=== PATIENT | male | born 1975 | race African-American/Black ===

== ENCOUNTER 2017-07-05 10:08 | Inpatient (IN) | payer SELFPAY ==
[~2017-07-05] VITALS: Ht 175.3 cm; Wt 93.8 kg
[2017-07-05] VITALS (8 sets, daily range): BP systolic 132–154; BP diastolic 75–103; PULSE 66–100; TEMP 36.2–36.6; O2SAT 96–100; Ht 175.3 cm; Wt 93.8 kg
[~2017-07-05 10:08] MED LIST: LIDODERM (LIDOCAINE) PATCH 5% TD PRN; LRT5 PO
[2017-07-05] MEDS ORDERED: NAPR1TAB9 PO (10:45)
[2017-07-05] MEDS ORDERED: KETOROLAC TROMETHAMINE 30 MG/ML VIAL IV STA (11:21)
[2017-07-05] MEDS ORDERED: ERTAPENEM 1 GM ADDVIAL IV ONE (11:30)
[2017-07-05 11:51] LABS: BASO % 0.1 %; BASO ABS # 0.01 K/uL (0-0.2); COMPLETE YES; EOS % 1.4 %; HEMATOCRIT 39.6 % (42-52); IG% 0.4 %; LYMPH % 28.4 %; LYMPH ABS # 1.96 K/uL (1.2-3.4); MEAN CORPUSCULAR HEMOGLOBIN 32.2 pg (25-34); MEAN CORPUSCULAR HGB CONC 35.4 g/dl (32-36); MEAN PLATELET VOLUME 11.5 fL (7.4-10.4); MONO % 5.1 %; NEUT % 64.6 %; PLATELET COUNT 242 K/uL (130-400); RED BLOOD COUNT 4.35 M/uL (4.7-6.1)
[2017-07-05 12:15] LABS: BUN/CREATININE RATIO 11.8 (10-20); CALCIUM 9.2 mg/dl (8.5-10.1); CREATININE 1.2 mg/dl (0.60-1.40); POTASSIUM 4.1 mmol/L (3.5-5.1)
--- NOTE | 2017-07-05 12:34 | DIAGNOSTIC IMAGING REPORT ---
RIGHT HAND 3 VIEWS CLINICAL HISTORY: Right hand injury. FINDINGS: 3 views of the right hand are obtained. No prior studies are available for comparison at the time of dictation. The skeletal structures are well mineralized. No fracture is identified. The joint spaces of the hand are well-maintained. There may be chronic avulsion injury of the ulnar styloid. Dorsal soft tissue swelling is noted. IMPRESSION: Dorsal soft tissue edema with no radiographic evidence of right hand fracture. If there is strong clinical concern for occult fracture consider short-term radiographic follow-up. Electronically signed by: Mohan Caraballo M.D. 07/05/2017 12:33 PM Dictated Date/Time: 07/05/2017 12:15 PM
[2017-07-05] MEDS ORDERED: MoRPHine SULFATE 4 MG/ML 1 ML CARP\\VIAL IV STA (12:35)
[2017-07-05] MEDS ORDERED: ONDANSETRON INJ 2 MG/ML 2 ML VIAL IV STA (12:35)
[2017-07-05] MEDS ORDERED: DIPHTHERIA/TETANUS/PERTUSSIS 0.5 ML SYR/VIAL IM. ONE (13:00)
[2017-07-05] MEDS ORDERED: ONDANSETRON INJ 2 MG/ML 2 ML VIAL IV PRN ×2 (14:30→20:00)
[2017-07-05] MEDS ORDERED: ACETAMINOPHEN 325 MG TAB PO PRN (14:30)
[2017-07-05] MEDS ORDERED: VANCOMYCIN CONSULT ACTIVE PRN (14:40)
[2017-07-05] MEDS ORDERED: LIDODERM (LIDOCAINE) PATCH 5% TD ONE (14:42)
[2017-07-05] MEDS ORDERED: MoRPHine SULFATE 4 MG/ML 1 ML CARP\\VIAL IV PRN (14:45)
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
[2017-07-05] MEDS ORDERED: POLYETHYLENE (MIRALAX) 17 GM PACK PO PRN (15:45)
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
[2017-07-05] MEDS ORDERED: VANCOMYCIN INJ 2,250 MG in SODIUM CHLORIDE 0.9% 500ML 500 ML IV ONE (16:30)
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
[2017-07-05] MEDS ORDERED: LIDOCAINE HCL 2% LOCAL 50ML VIAL ONE (18:39)
[2017-07-05] MEDS ORDERED: BUPIVACAINE 0.5 % 5 MG/1 ML MPF 30ML VIAL ONE (18:39)
[2017-07-05] MEDS ORDERED: BACITRACIN 50000 UNIT VIAL ONE (18:41)
--- NOTE | 2017-07-05 18:45 | History & Physical Bridge Note ---
H&P Re-Evaluation Bridge Note: I have examined the patient, reviewed the History & Physical and in the interval since the performance of the History & Physical I have noted the following changes of clinical significance: No changes noted I saw the patient in the preoperative holding area and we discussed risks benefits reasonable outcomes and options of treatment. He understands he may develop arthritis in the PIP joint given infection. We discussed options of not doing surgery with result of persistent infection. I discussed possibly stiffness tendon and nerve injury etc. he is agreeable wishes to receive proper surgical intervention shortly. Surgical intervention will consist of a right ring finger arthrotomy and drainage of PIP joint.
[2017-07-05] MEDS ORDERED: FENTANYL CITRATE INJ 50 MCG/1 ML 2 ML VIAL ONE (18:48)
[2017-07-05] MEDS ORDERED: MIDAZOLAM HCL 1 MG/ML 2ML VIAL ONE (18:48)
[2017-07-05] MEDS ORDERED: PROPOFOL IV EMULSION 10 MG/ML 20 ML VIAL IV ONE (19:13)
[2017-07-05] MEDS ORDERED: LABETALOL HCL IV 5 MG/ML 20ML IV ONE (19:14)
[2017-07-05] MEDS ORDERED: HydrALAZINE HCL 20 MG/ML VIAL ONE (19:23)
--- NOTE | 2017-07-05 19:39 | [facility] Post Operative Brief Note ---
Immediate Operative Summary Operative Date Jul 05, 2017. Pre-Operative Diagnosis Septic PIP Joint Right 4th Finger Post-Operative Diagnosis Septic PIP Joint Right 4th Finger Procedure(s) Performed Arthrotomy and Drainage PIP Joint Right 4th Finger Surgeon Dr. Gaona Community Specialist Surgeon(s) no Estimated Blood Loss 0ml Findings septic PIP joint Specimens 1. Septic PIP Joint Right 4th Finger Drains no Anesthesia digital block with sedation Complication(s) None Disposition Recovery Room / PACU
[2017-07-05] MEDS ORDERED: FLUMAZENIL 0.1 MG/1 ML 10 ML VIAL IV PRN (20:00)
[2017-07-05] MEDS ORDERED: EpHEDrine SULFATE INJ 50 MG/ML AMP IV PRN (20:00)
[2017-07-05] MEDS ORDERED: ATROPINE SULFATE 0.1 MG/ML 5ML SYR IV PRN (20:00)
[2017-07-05] MEDS ORDERED: KETOROLAC TROMETHAMINE 30 MG/ML VIAL IV. PRN (20:00)
[2017-07-05] MEDS ORDERED: LABETALOL HCL IV 5 MG/ML 20ML IV PRN (20:00)
[2017-07-05] MEDS ORDERED: NALOXONE HCL 0.4 MG/1 ML VIAL/CARP IV PRN (20:00)
[2017-07-05] MEDS ORDERED: PROMETHAZINE HCL INJ 12.5 MG in SODIUM CHLORIDE 0.9% 50ML 50 ML IV PRN (20:00)
[2017-07-05] MEDS ORDERED: HYDROmorphone INJ 1 MG/ML SYR IV PRN (20:00)
--- NOTE | 2017-07-05 20:10 | Anesthesiology Progress Note ---
Anesthesia Post Op Note Date & Time Jul 05, 2017 at 20:10 Vital Signs Pain Intensity: 4 Vital Signs Past 12 Hours Date Time Temp Pulse Resp B/P (MAP) Pulse Ox O2 Delivery O2 Flow Rate FiO2 07/05/17 20:09 36.4 89 16 132/89 (103) 98 Room Air 07/05/17 20:00 36.5 87 19 131/85 97 Room Air 07/05/17 19:50 89 22 144/99 98 Room Air 07/05/17 19:41 36.5 89 13 139/89 97 Room Air 07/05/17 16:10 36.6 66 16 154/103 (120) 100 Room Air 07/05/17 14:40 100 Room Air 07/05/17 14:09 36.9 64 18 128/86 100 Room Air 07/05/17 12:18 83 18 141/98 100 Room Air 07/05/17 10:16 36.8 85 20 165/105 98 Room Air Notes Mental Status: alert / awake / arousable, participated in evaluation Pt Amnestic to Procedure: Yes Nausea / Vomiting: adequately controlled Pain: adequately controlled Airway Patency, RR, SpO2: stable & adequate BP & HR: stable & adequate Hydration State: stable & adequate Anesthetic Complications: no major complications apparent
[2017-07-05] MEDS: KETOROLAC TROMETHAMINE 30 MG/ML VIAL IV SCH (23:11)
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
[2017-07-06] MEDS ORDERED: VANCOMYCIN INJ 1,500 MG in SODIUM CHLORIDE 0.9% 500ML 500 ML IV SCH ×2 (04:00→08:00)
[2017-07-06 04:51] VITALS: BP 160/78; PULSE 96; TEMP 36.6; O2SAT 98
[2017-07-06] MEDS: KETOROLAC TROMETHAMINE 30 MG/ML VIAL IV SCH ×2 (05:49→12:20)
[2017-07-06 06:04] LABS: BASO % 0.1 %; BASO ABS # 0.01 K/uL (0-0.2); COMPLETE YES; EOS % 1.3 %; HEMATOCRIT 37.6 % (42-52); IG% 0.2 %; LYMPH ABS # 1.77 K/uL (1.2-3.4); MEAN CELL VOLUME 91.5 fL (80-100); MEAN CORPUSCULAR HEMOGLOBIN 32.1 pg (25-34); MEAN CORPUSCULAR HGB CONC 35.1 g/dl (32-36); MEAN PLATELET VOLUME 11.6 fL (7.4-10.4); MONO % 5.1 %; NEUT % 72.3 %; PLATELET COUNT 226 K/uL (130-400); RED BLOOD COUNT 4.11 M/uL (4.7-6.1); WHITE BLOOD COUNT 8.43 K/uL (4.8-10.8)
[2017-07-06 06:37] LABS: CALCIUM 8.6 mg/dl (8.5-10.1); CREATININE 1.1 mg/dl (0.60-1.40); POTASSIUM 4.1 mmol/L (3.5-5.1)
[2017-07-06 06:46] VITALS: BP 129/73
[2017-07-06 07:25] VITALS: BP 134/86; PULSE 93; TEMP 36.6; O2SAT 99
[2017-07-06 07:44] VITALS: BP 134/75; PULSE 97; TEMP 36.5; O2SAT 98
[2017-07-06] MEDS ORDERED: LIDODERM (LIDOCAINE) PATCH 5% TD SCH (09:00)
--- NOTE | 2017-07-06 10:19 | Anesthesiology Progress Note ---
Anesthesia Post Op Note Date & Time Jul 06, 2017 at 10:18 Vital Signs Vital Signs Past 12 Hours Date Time Temp Pulse Resp B/P (MAP) Pulse Ox O2 Delivery O2 Flow Rate FiO2 07/06/17 08:00 Room Air 07/06/17 07:44 36.5 97 18 134/75 (94) 98 Room Air 07/06/17 07:25 36.6 93 16 134/86 (102) 99 Nasal Cannula 2.0 07/06/17 06:46 129/73 (91) 07/06/17 04:51 36.6 96 18 160/78 (105) 98 Room Air 07/06/17 00:00 Room Air 07/05/17 23:15 36.3 100 18 135/75 (95) 96 Room Air 07/05/17 23:10 36.6 99 16 133/80 (97) 97 Room Air Notes Mental Status: alert / awake / arousable, participated in evaluation Pt Amnestic to Procedure: Yes Nausea / Vomiting: adequately controlled Pain: adequately controlled Airway Patency, RR, SpO2: stable & adequate BP & HR: stable & adequate Hydration State: stable & adequate Anesthetic Complications: no major complications apparent
[2017-07-06] MEDS ORDERED: ERTAPENEM IV 1 GM in SODIUM CHLOR 0.9% AD-VAN 50ML 50 ML IV SCH (12:00)
--- NOTE | 2017-07-06 14:33 | Orthopedic Progress Note ---
Orthopedic Progress Note Date of Service Jul 06, 2017. Subjective Post OP Day: 1 Reports: feeling well, complaints (Main complaint is low back back that goes down his leg. The pain started after digging a hole for work.), pain controlled w PO medications, Denies: chest pain, SOB, calf pain Objective N/V intact, capillary refill less than 2 sec., incision C/D/I, A&O x3 Right ring finger: Moderate swelling around the PIP joint with mild to moderate erythema. No active drainage. Incision is well approximated. Date Time Temp Pulse Resp B/P (MAP) Pulse Ox O2 Delivery O2 Flow Rate FiO2 07/06/17 08:00 Room Air 07/06/17 07:44 36.5 97 18 134/75 (94) 98 Room Air 07/06/17 07:25 36.6 93 16 134/86 (102) 99 Nasal Cannula 2.0 07/06/17 06:46 129/73 (91) 07/06/17 04:51 36.6 96 18 160/78 (105) 98 Room Air 07/06/17 00:00 Room Air 07/05/17 23:15 36.3 100 18 135/75 (95) 96 Room Air 07/05/17 23:10 36.6 99 16 133/80 (97) 97 Room Air 07/05/17 22:10 36.2 100 22 144/84 (104) 96 Room Air 07/05/17 21:18 36.5 94 16 145/86 (105) 97 Room Air 07/05/17 20:40 36.2 90 18 144/94 (111) 99 Room Air 07/05/17 20:10 Room Air 07/05/17 20:09 36.4 89 16 132/89 (103) 98 Room Air 07/05/17 20:00 36.5 87 19 131/85 97 Room Air 07/05/17 19:50 89 22 144/99 98 Room Air 07/05/17 19:41 36.5 89 13 139/89 97 Room Air 07/05/17 16:10 36.6 66 16 154/103 (120) 100 Room Air 07/05/17 14:40 100 Room Air Laboratory Results 24 Hours: Test 07/06/17 05:35 White Blood Count 8.43 K/uL Red Blood Count 4.11 M/uL Hemoglobin 13.2 g/dL Hematocrit 37.6 % Mean Corpuscular Volume 91.5 fL Mean Corpuscular Hemoglobin 32.1 pg Mean Corpuscular Hemoglobin Concent 35.1 g/dl Platelet Count 226 K/uL Mean Platelet Volume 11.6 fL Neutrophils (%) (Auto) 72.3 % Lymphocytes (%) (Auto) 21.0 % Monocytes (%) (Auto) 5.1 % Eosinophils (%) (Auto) 1.3 % Basophils (%) (Auto) 0.1 % Neutrophils # (Auto) 6.09 K/uL Lymphocytes # (Auto) 1.77 K/uL Monocytes # (Auto) 0.43 K/uL Eosinophils # (Auto) 0.11 K/uL Basophils # (Auto) 0.01 K/uL Assessment & Plan Assessment: POD #1 s/p Right ring finger arthrotomy and drainage septic proximal interphalangeal joint Cultures growing gram + cocci Plan: Continue Invanz and Vancomycin until sensitivities are final. Packing pulled today and dressing changed. ROM as tolerated with the right ring finger. Inhouse Planning Pain Management: Toradol, Morphine, PO Tylenol Discharge Planning Discharge Planning: home (Home when antibiotic choice can be made.)
[2017-07-06 14:57] VITALS: BP 169/103; PULSE 82; TEMP 36.7; O2SAT 100
[2017-07-06 17:27] VITALS: BP 169/103; PULSE 82; TEMP 36.7; O2SAT 100
[2017-07-06] MEDS ORDERED: CLC150 PO (17:33)
[2017-07-06] MEDS ORDERED: SULF800T23 PO (17:35)
[2017-07-06] MEDS ORDERED: IBUP600T44 PO (17:36)
--- NOTE | 2017-07-06 17:40 | Discharge Instructions ---
Discharge Instructions Date of Service Jul 06, 2017. Admission Reason for Admission: Cellulitis Of Hand, Right Discharge Discharge Diagnosis / Problem: RT HAND CELLULITIS /BACK PAIN Discharge Goals Goal(s): Increase independence, Improve disease control, Diagnostic testing, Therapeutic intervention Activity Recommendations Activity Limitations: resume your previous activity . Instructions / Follow-Up Instructions / Follow-Up HOSPITAL FOLLOW UP : 07/10/2017 11:40 AM Renaldo Elizondo MD [facility] ORTHOPEDICS FOLLOW UP IN 1 -2 WEEKS TO ASSES THE INCISION ON RT HAND Current Hospital Diet Patient's current hospital diet: Regular Diet Discharge Diet Recommended Diet: Regular Diet Procedures Procedures Performed: Arthrotomy and Drainage PIP Joint Right 4th Finger Pending Studies Studies pending at discharge: no Medical Emergencies . Who to Call and When: Medical Emergencies: If at any time you feel your situation is an emergency, please call 911 immediately. . Non-Emergent Contact Non-Emergency issues call your: Primary Care Provider . . "Provider Documentation" section prepared by Julianna Weinberg. . VTE Core Measure Inpt VTE Proph given/why not?: SCD's
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
[2017-07-07] MEDS ORDERED: VANCOMYCIN TROUGH ONE ×2 (07:30→15:30)
== END 2017-07-06 17:51 | disposition home or self-care (01) | DRG 603 ==
LOC: C.EDB 10:10 → C.4E 14:19 → ENRESERV 15:05
PROVIDERS: ADMIT Hospitalist; ATTEND Hospitalist
PROC: 0R9 Upper Joints, Drainage (ICD-10-PCS; principal; 2017-07-05 14:00)
DX: L03.113 Cellulitis of right upper limb (principal); M54.5 Low back pain; J45.909 Unspecified asthma, uncomplicated; W50.3XXA Accidental bite by another person, initial encounter; R03.0 Elevated blood-pressure reading, without diagnosis of hypertension; Z80.9 Family history of malignant neoplasm, unspecified; Z82.49 Family history of ischemic heart disease and other diseases of the circulatory system